=== PATIENT | male | born 1950 | race Caucasian/White ===

== ENCOUNTER 2022-05-31 01:20 | Day surgery (SDC) | payer MEDICARE, OTHER, SELFPAY ==
--- NOTE | 2022-05-30 14:00 | PC.NURSE ---
Report to the Outpatient Waiting Room, entrance under the green pavilion located off [facility], at time __0930 on date _05/31/22 . Planned Procedure Time: _1130 . Time changes happen often and if your time is changed the preop area will call you the afternoon before. - You and your visitor will be asked to self-screen and do not enter if you have any COVID symptoms. - We encourage only one visitor and NO visitors under age 16 are allowed at this time. Your visitor will receive communication by the phone number that is given day of service. - The patient visitor is requested to social distance or may leave the building when not with patient due to restrictions. - A mask is required within the hospital. Patients may have clear liquids (water, carbonated beverages, clear teas, apple juice) until 3 hours prior to surgery with a maximum of 20 ounces. - No food from midnight until time of surgery - Infants may have breast milk until 4 hours before surgery, formula 6 hours prior to surgery. - Children will be allowed to drink immediately following surgery. If applicable, please bring a bottle or sippy cup to assist with drinking. Juice, water, soda, and popsicles are readily available. For infants on formula, please bring formula the day of surgery. Pacifiers are allowed. Take the following medications with a SIP of water the morning of surgery: ___NONE Medications to discontinue per physician ___PT STATES HOLD ASPIRIN TONIGHT PER DR GALINDO Date to take last dose Please no make-up, nail bulgarian, hairspray, perfume, deodorant, or body powder the day of surgery. No jewelry (including any body piercings) or valuables the day of surgery, leave them at home. Please take a shower or bath the night before, or the morning of, surgery with an antibacterial soap. Wear comfortable, loose fitting clothing. Children are encouraged to wear pajamas. - Jewelry must be removed prior to entering the operating room. Rings and piercings that are not removed may be cut off. - The hospital will not accept responsibility for valuables. - Please leave all valuables, including medications, at home the day of surgery. If you are going home after surgery, a licensed racecar driver must drive you home. - NO public transportation without another adult. - We recommend that an adult stay with you for 24 hours following discharge. - We also recommend that you do not drive, make important decision, drink alcoholic beverages, or take any drugs that were not prescribed by your health care provider for at least 24 hours after your discharge time. For Pediatric surgeries, we recommend two adults accompany the child home. Follow any additional instructions given to you from your surgeon. If you or anyone in your household have experienced Covid symptoms in the past week, please notify your surgeon or the nurse liaison at the phone number below for possible testing. Telephone instructions given to ___PATIENT and asked if any additional questions and then verbalized understanding. Patient advised to call surgeon office or pre surgery nurse liaison [phone] if any additional questions.
[2022-05-30 14:09] VITALS: BMI 24.0
[2022-05-31] VITALS (7 sets, daily range): BP systolic 122–143; BP diastolic 75–93; PULSE 62–85; RESP 12–16; TEMP 36.3–36.8; O2SAT 98–100; BMI 23.8
--- NOTE | ~2022-05-31 | XR_ITS ---
EXAMINATION: XR fluoroscopy no charge DATE: 05/31/2022 12:56 INDICATION: Urethral stricture. Urinary retention. TECHNIQUE: 2 intraoperative fluoroscopic views of the pelvis were obtained. I was not present. Fluoro scopy exposure time was 51 seconds. COMPARISON: None. FINDINGS: Images demonstrate a wire in the bladder and a dilator in the urethra. There are multiple s tones in the bladder. IMPRESSION: 1. Urethral dilatation. 2. Bladder stones. Reviewed, dictated and finalized at location A.
[2022-05-31] MEDS: LACTATED RINGERS 1,000 ML 30 ML IV CONT (10:39)
--- NOTE | 2022-05-31 10:43 | ECG_ITS ---
Measurements Intervals Cope Rate: 71 P: 73 CO: 187 QRS: 44 QRSD: 90 T: 62 QT: 364 QTc: 398 Interpretive Statements SINUS RHYTHM NORMAL ECG NO PREVIOUS ECG AVAILABLE FOR COMPARISON Electronically Signed On 05-31-2022 14:58:05 CDT by Kamron Larios M.D.
--- NOTE | 2022-05-31 10:53 | P.PNAN_ITS ---
Anes - Initial Pre Proc Eval Procedure: Operation Date: 05/31/22 11:30 Proposed Procedures p Cystoscopy, Urethral Dilatation - Jimenez Pettit MD Date/Time: 05/31/22 10:53 Surgeon: Jimenez Pettit MD Pre Op Diagnosis: retention of urine Patient Data Age: 72 Gender: M Height: 1.85 m Weight: 82 kg Last Vital Signs Temp 36.8 C 05/31/22 09:35 Pulse 85 05/31/22 09:35 Resp 16 05/31/22 09:35 BP 137/86 05/31/22 09:35 Pulse Ox 98 05/31/22 09:35 O2 Del Method Room Air 05/31/22 09:35 Allergies Allergy/AdvReac Type Severity Reaction Status Date / Time No Known Allergies Allergy Verified 05/31/22 10:22 Home Medications Medication Instructions Recorded Confirmed Type aspirin 81 mg tablet,delayed 81 mg PO HS 05/30/22 05/31/22 History release (Adult Low Dose Aspirin) cholecalciferol (vitamin D3) 25 25 mcg PO DAILY 05/30/22 05/30/22 History mcg (1,000 unit) tablet cyanocobalamin (vitamin B-12) 1,000 mcg PO DAILY 05/30/22 05/30/22 History 1,000 mcg tablet ibuprofen 125 mg-acetaminophen 250 1 tablet PO HS 05/30/22 05/30/22 History mg tablet (Advil Dual Action) lisinopril 10 mg tablet 10 mg PO HS 05/30/22 05/30/22 History mirtazapine 15 mg tablet 15 mg PO EVERY OTHER DAY 05/30/22 05/30/22 History rosuvastatin 10 mg tablet 10 mg PO EVERY OTHER DAY 05/30/22 05/30/22 History tamsulosin 0.4 mg capsule 0.4 mg PO DAILY 05/30/22 05/30/22 History turmeric 400 mg capsule 500 mg PO DAILY 05/30/22 05/30/22 History Patient hx anesthesia problems: none Family hx anesthesia problems: none Results Review: All pre-operative results and documents have been reviewed as part of the pre- operative evaluation. COUNTS INCLUDE 234 BEDS AT THE [facility] Past Medical History Medical History (Updated 05/31/22 @ 10:54 by Vivek Lawrence DO) Anxiety GERD (gastroesophageal reflux disease) Hyperlipidemia Hypertension PVD (peripheral vascular disease) Social History Social History Years smoked: 10 Smoking status: Former smoker Tobacco type: cigarettes Smoking end date: 08/12/03 Alcohol intake: current Alcohol use details: 2 DRINKS PER MONTH Living arrangements: with family Spiritual care concerns: No Anes - Eval Final PreProcedure Day of Procedure 05/31/22 10:53 Patient weight: normal Heart: regular rate and rhythm Lungs: clear to auscultation and normal air movement Airway: Mallampati scale class II Neurological: alert and oriented Last oral intake: >/= 8 hours ASA classification: III Emergent: no Anesthetic plan: proceed Anesthesia type and monitoring: general LMA and standard monitoring Results Review: All pre-operative results and documents have been reviewed as part of the pre- operative evaluation. Informed Consent: The patient's anesthetic plan and its attendant risks and benefits were discussed with the patient/family/POA. Questions were solicited and answers provided to the satisfaction of the patient/family/POA.
--- NOTE | 2022-05-31 11:33 | WPDHPUPDATE1 ---
History and Physical Update Update Date/Time: 05/31/22 11:33 History and Physical has been reviewed, including an updated exam of the patient. There are NO changes in the patient's condition. Risks, benefits, and alternatives have been discussed and questions answered. Patient agrees to proceed with procedure.
[2022-05-31] MEDS: ceFAZolin 2 GM/D5W 50 ML 2 GM/50 ML BAG IVPB (11:40)
[2022-05-31] MEDS: LIDOCAINE HCL 2% GEL UROJET 10 ML PKG MUCOUS MEM (11:48)
--- NOTE | 2022-05-31 13:08 | W.PM.PROC2 ---
Procedure Note - Detailed Date of Procedure 05/31/22 Pre-op Diagnosis Urinary retention, urethral stricture Post-op Diagnosis Other (Bladder neck contracture) Procedure Performed Cystoscopy, dilatation of a bladder neck contracture, laser lithotripsy of a large bladder calculus with extraction of bladder stones and urethral catheterization Surgeon Jimenez Pettit MD Description of Procedure patient is brought the op suite was prepped draped in routine sterile fashion while a dorsal lithotomy position. We 1st started under systemic sedation but later converted to a general LMA anesthetic. Flexible cystoscopy shows a very very tight bladder neck contracture. It was somewhat difficult to identify the opening of the bladder neck but eventually found the position in the very anterior position. I passed a 0.035 in glidewire into the bladder and dilated the urethra from 8 F to 28 F with Amplatz dilators over the guidewire. Cystoscopy then showed a very trabeculated bladder with multiple diverticula. In the most dependent, and largest diverticulum he had about 10 stones, some measuring up to 2-3 cm. I evacuated the smaller stones in fractured the larger ones with a 1000 micron holmium laser fiber. All pieces were evacuated at the termination. I opted leave an indwelling 20 F [place] tip catheter. The patient tolerated the procedure well was taken recovery room good condition. Drains Yes Packing No Pathology Yes Complications No immediate complications Condition Stable
== END 2022-05-31 14:45 | disposition home or self-care (01) ==
PROVIDERS: PCP Family Medicine; Visit Provider Urology
PROC: 0T7D8ZZ Dilation of Urethra, Via Natural or Artificial Opening Endoscopic (ICD-10-PCS; CPT 52281; principal; 2022-05-31 11:30)
DX: N21.0 Calculus in bladder (principal); N32.0 Bladder-neck obstruction; R33.8 Other retention of urine; I10 Essential (primary) hypertension; E78.5 Hyperlipidemia, unspecified; I49.3 Ventricular premature depolarization; K21.9 Gastro-esophageal reflux disease without esophagitis; F41.9 Anxiety disorder, unspecified; Z79.82 Long term (current) use of aspirin; Z87.891 Personal history of nicotine dependence
CPT/HCPCS: 52318; 82365; 88300; 93005; 99199; A9270; C1726; C1758; C1769; J0690; J1100; J2250; J2405; J2704; J3010; J7120